=== PATIENT | female | born 1980 | race Caucasian/White ===

== ENCOUNTER 2019-06-23 11:55 | Day surgery (SDC) | payer OTHER ==
[2019-06-23] MEDS ORDERED: DOXYCYCLINE HY100 MG PO (18:11)
[2019-06-23] MEDS ORDERED: NAPROXEN500 MG PO (18:11)
== END 2019-06-24 00:15 | disposition home or self-care (01) ==
LOC: CIR.AMB 11:55
DX: O02.1 Missed abortion (principal); Z3A.01 Less than 8 weeks gestation of pregnancy